=== PATIENT | male | born 1955 | race Caucasian/White ===

== ENCOUNTER → 2020-06-15 | Outpatient (CLI) | payer MEDICARE, OTHER ==
[2020-06-15 14:09] LABS: HEMOGLOBIN 15.7 gm/dl (14.0-17.5); RED BLOOD COUNT 5.02 M/UL (4.20-5.50); WHITE BLOOD COUNT 9.5 K/UL (4.5-11.0)
[2020-06-15 15:37] LABS: BUN/CREATININE RATIO 22 (0-10)
== END ==
LOC: LAB 13:17
PROVIDERS: Family Medicine
DX: E53.8 Deficiency of other specified B group vitamins (principal); E78.2 Mixed hyperlipidemia; I10 Essential (primary) hypertension; R79.89 Other specified abnormal findings of blood chemistry; Z12.5 Encounter for screening for malignant neoplasm of prostate
CPT/HCPCS: 36415; 80053; 80061; 82607; 83735; 84439; 84443; 85027; G0103

== ENCOUNTER → 2021-04-15 | Outpatient (CLI) | payer MEDICARE, OTHER | LOC: EXRD 10:51 | DX: M54.2 Cervicalgia (principal); M47.812 Spondylosis without myelopathy or radiculopathy, cervical region; M43.12 Spondylolisthesis, cervical region | CPT/HCPCS: 72050 ==